=== PATIENT | female | born 1970 | race Caucasian/White ===

== ENCOUNTER 2019-11-26 15:38 | Emergency (ER) | payer OTHER, SELFPAY ==
--- NOTE | 2019-11-26 15:43 | ED.GENADULT ---
HPI - General Adult General Chief complaint: Skin/Abscess/Foreign Body Stated complaint: Rash Time Seen by Provider: 11/26/19 15:43 Source: patient Mode of arrival: ambulatory Limitations: no limitations History of Present Illness HPI narrative: 49-year-old female patient presents to the [facility] with complaints of a rash that she has had for about 3 months. Patient states that she is seeing her attending ambulatory care, primary doctor as well as another doctor for this. Patient states she has been on permethicin findings as well as amoxicillin for the rash. Patient states it continues to itch and noticed that there was a new area that popped up on her arm so she wanted to come and get checked out today. Patient denies any fevers, chest pain, shortness of breath. Patient states that no one else in the household has the rash. Patient states that it does itch more at nighttime. Patient states that she has washed everything. Patient does admit to having pets but states she has not had them checked out. Patient did state that she noticed that the rash did start when she allowed her dog to start sleeping with her at night. Related Data Allergies Allergy/AdvReac Type Severity Reaction Status Date / Time No Known Allergies Allergy Verified 11/26/19 16:12 Review of Systems Review of Systems: Narrative: CONSTITUTIONAL: Denies fever, chills, or sweats. EYES: Denies visual changes, redness, or discharge. ENT: Denies rhinorrhea, congestion, sore throat, or otalgia. CARDIOVASCULAR: Denies chest pain, palpitations, or edema. RESPIRATORY: Denies cough or dyspnea. GASTROINTESTINAL: Denies abdominal pain, nausea, vomiting, or diarrhea. GENITOURINARY: Denies dysuria or hematuria. SKIN: Positive rash with itching to the back, abdomen, neck. MUSCULOSKELETAL: Denies back pain, joint pain, or myalgia. NEUROLOGIC: Denies headache, numbness, or weakness. PSYCHIATRIC: Denies anxiety or depression. [facility] Past Medical History Medical History (Updated 11/26/19 @ 16:15 by JOHN Christian) Anxiety Hepatitis C Kidney dysfunction Cyst on kidney Surgical History Surgical History (Updated 11/26/19 @ 15:46 by JOHN Christian) H/O tubal ligation Hx of tonsillectomy Comments At the time of my signature I agree with nursing past medical history, surgical, social, and family history. There is no relevant family history pertinent to the presenting complaint. Exam Narrative: Exam Narrative: GENERAL: Well-appearing, well-nourished, and in no acute distress. HEAD: Normocephalic, atraumatic. EYES: PERRLA and EOMI. ENT: Nares clear, no rhinorrhea or epistaxis. Mucous membranes moist. NECK: Supple. No lymphadenopathy CHEST: Clear to auscultation. No respiratory distress. HEART: Regular rate and rhythm. No murmur heard. Normal peripheral pulses. ABDOMEN: Soft, nontender, nondistended, normal active bowel sounds. EXTREMITIES: Normal range of motion. No edema. SKIN: Warm, dry, patient has 2 circular rashes noted to the back of her neck that appears to be a healing blister with a punctate liat in the middle of both circular areas. There is some scabbing noted toward the outside of the circular rash. Similar rashes also appear on the patient's back and various sizes with punctate robbins in the middle of all of these areas. There is no active drainage noted. Patient does have some healing rash area noted to the abdomen that is not scabbed over at this time. There is no warmth noted to the touch. NEURO: No focal deficits. Alert and oriented x3. Course Vital Signs Vital signs: Vital Signs Temperature 36.6 C 11/26/19 15:52 Pulse Rate 77 11/26/19 15:52 Respiratory Rate 18 11/26/19 15:52 Blood Pressure 114/74 11/26/19 15:52 Pulse Oximetry 99 11/26/19 15:52 Temperature 36.6 C 11/26/19 15:52 Pulse Rate 77 11/26/19 15:52 Respiratory Rate 18 11/26/19 15:52 Blood Pressure 114/74 11/26/19 15:52 Pulse Oximetry 99 11/26/19 1
[2019-11-26 15:52] VITALS: BP 114/74; PULSE 77; RESP 18; TEMP 36.6; O2SAT 99
== END 2019-11-26 16:20 | disposition home or self-care (01) ==
PROVIDERS: Emergency Provider Nurse Practitioner Family
DX: S20.469A Insect bite (nonvenomous) of unspecified back wall of thorax, initial encounter (principal); S30.861A Insect bite (nonvenomous) of abdominal wall, initial encounter; S10.96XA Insect bite of unspecified part of neck, initial encounter; W57.XXXA Bitten or stung by nonvenomous insect and other nonvenomous arthropods, initial encounter; Z86.19 Personal history of other infectious and parasitic diseases
CPT/HCPCS: 99213; G0463

== ENCOUNTER 2020-01-28 15:54 | Emergency (ER) | payer OTHER, SELFPAY ==
[2020-01-28 16:09] VITALS: BP 122/83; PULSE 91; RESP 20; TEMP 36.9; O2SAT 100
--- NOTE | 2020-01-28 16:53 | ED.GENADULT ---
HPI - General Adult General Chief complaint: Wound/Laceration Stated complaint: pos staph infection Time Seen by Provider: 01/28/20 16:53 Source: patient and RN notes reviewed Mode of arrival: ambulatory Limitations: no limitations History of Present Illness HPI narrative: 49-year-old female presents with complaints of diffused raised, red, itching, varies stages of healing and scabbed over rash for the past 5 months. Denies new changes in personal hygiene products or laundry detergent. No new foods or medications. No swelling, burning, bleeding, or drainage. Denies fever, chills, headaches, weakness, fatigue, myalgia, facial swelling, or tongue swelling. Denies chest pain or dyspnea. Tolerating po intake well. The patient reports she have not been diagnosed with COVID-19. The patient reports she is not waiting for the results of a COVID-19 lab test. The patient reports she do not have fever, chills, weakness, fatigue, myalgia, or facial swelling. The patient reports she do not have a new or worsening cough or shortness of breath. Denies chest pain. The patient reports she do not have any rhinorrhea, congestion, sore throat, nausea, vomiting, abdominal pain, and diarrhea. Tolerating po intake well. Denies recent traveling. Denies concerns for COVID-19 or exposures been home since [id number] order except for essential household needs and return home. At this time, patient is not suspected of having COVID-19. Complaints of diffused dental pain for the past 7 days. No treatment. Denies any drainage. No fever. No jaw swelling. No neck swelling. No limitation with speaking or swallowing. Has history of dental caries. No dental trauma. No oral lesions. Exacerbating factors consist of eating and drinking cold items. Relieving factors eating soft foods and avoiding cold items. No dentures or bridges. Tolerating liquids well. Some parts of this dictation were generated by voice recognition software and may contain typographical and/or grammatical inaccuracies. Related Data Allergies Allergy/AdvReac Type Severity Reaction Status Date / Time No Known Allergies Allergy Verified 11/26/19 16:12 Review of Systems Review of Systems: Narrative: CONSTITUTIONAL: Denies fever, chills, sweats. EYES: Denies visual changes, redness, discharge. ENT: Denies rhinorrhea, congestion, sore throat, otalgia. Complains of diffused dental pain. CARDIOVASCULAR: Denies chest pain, palpitations, edema. RESPIRATORY: Denies dyspnea, wheezing, cough. GASTROINTESTINAL: Denies abdominal pain, nausea, vomiting, diarrhea. GENITOURINARY: Denies dysuria, hematuria, abnormal discharge SKIN: Complains of diffused raised, red, itching, varies stages of healing and scabbed over rash. Denies drainage. MUSCULOSKELETAL: Denies acute back pain, joint pain, or myalgia. NEUROLOGIC: Denies numbness or focal weakness. PSYCHIATRIC: Denies anxiety or depression. All other systems reviewed & are unremarkable except as noted in HPI and below. [facility] Past Medical History Medical History Anxiety Hepatitis C Kidney dysfunction Cyst on kidney Surgical History Surgical History H/O tubal ligation Hx of tonsillectomy Family History Family History (Updated 01/28/20 @ 17:06 by JOHN Mckeon) Father , Late 60's Acute myocardial infarction Mother , 80's Hypertension Diabetes mellitus Lung cancer Social History Social History (Updated 01/28/20 @ 17:08 by JOHN Mckeon) Smoking packs per day: 0.5 Smoking cigarettes per day: 10.0 Years smoked: 36 Smoking pack-years: 18.00 Smoking status: Current every day smoker Tobacco type: cigarettes Second hand tobacco smoke exposure: Yes Alcohol intake: current Substance use: former Living arrangements: with family Gender identity (if verbali
== END 2020-01-28 17:18 | disposition home or self-care (01) ==
PROVIDERS: Emergency Provider Nurse Practitioner Family
DX: L08.9 Local infection of the skin and subcutaneous tissue, unspecified (principal); K02.9 Dental caries, unspecified; Z86.19 Personal history of other infectious and parasitic diseases; F17.210 Nicotine dependence, cigarettes, uncomplicated
CPT/HCPCS: 99213; G0463

== ENCOUNTER 2020-08-24 19:50 | Emergency (ER) | payer OTHER, SELFPAY ==
[2020-08-24 20:06] VITALS: BP 149/89; PULSE 99; RESP 16; TEMP 36.9; O2SAT 99
--- NOTE | 2020-08-24 20:10 | ED.GENADULT ---
HPI - General Adult General Chief complaint: Skin/Abscess/Foreign Body Stated complaint: Sores on body Time Seen by Provider: 08/24/20 20:10 Source: patient and RN notes reviewed Mode of arrival: ambulatory Limitations: no limitations History of Present Illness HPI narrative: 50-year-old female presents with complaints of diffused wounds with redness, warmth, tenderness, and swelling to back of neck, bilateral hands, and right lower leg for the past 30 days. Salud reports that her wound throughout her body will not heal. Five days ago with nodule and then increase redness and warmth. No treatment. Denies radiation of tenderness, redness, or swelling. Exacerbating factors consist of picking at areas. Denies open areas or drainage. Denies fever or chills. Denies nausea, vomiting, and abdominal pain. Tolerating po intake well. Remains active. The patient reports she have not been diagnosed with COVID-19. The patient reports she is not waiting for the results of a COVID-19 lab test. The patient reports she do not have fever, chills, weakness, or fatigue. The patient reports she do not have a new or worsening cough or shortness of breath. Denies chest pain. The patient reports she do not have any rhinorrhea, congestion, sore throat, loss of taste, and diarrhea. Denies recent traveling. Denies concerns for COVID-19 or exposures. At this time, patient is not suspected of having COVID-19. Some parts of this dictation were generated by voice recognition software and may contain typographical and/or grammatical inaccuracies. Related Data Home Medications Medication Instructions Recorded Confirmed Vitamins 08/24/20 dextroamphetamine-amphetamine 08/24/20 Allergies Allergy/AdvReac Type Severity Reaction Status Date / Time No Known Allergies Allergy Verified 11/26/19 16:12 Review of Systems Review of Systems: Narrative: CONSTITUTIONAL: Denies fever, chills, sweats. EYES: Denies visual changes, redness, discharge. ENT: Denies rhinorrhea, congestion, sore throat, otalgia. CARDIOVASCULAR: Denies chest pain, palpitations, edema. RESPIRATORY: Denies dyspnea, wheezing, cough. GASTROINTESTINAL: Denies abdominal pain, nausea, vomiting, diarrhea. SKIN: Complains of diffused wounds with redness, warmth, tenderness, and swelling to back of neck, bilateral hands, and right lower leg. MUSCULOSKELETAL: Denies acute back pain, joint pain, or myalgia. NEUROLOGIC: Denies numbness or focal weakness. PSYCHIATRIC: Denies anxiety or depression. All systems reviewed & are unremarkable except as noted in HPI and below. [facility] Past Medical History Medical History (Updated 08/25/20 @ 00:00 by Alexia Treviño) Anxiety Hepatitis C Kidney dysfunction Cyst on kidney Surgical History Surgical History H/O tubal ligation Hx of tonsillectomy Family History Family History Father , Late 60's Acute myocardial infarction Mother , 80's Hypertension Diabetes mellitus Lung cancer Social History Social History (Updated 08/28/20 @ 19:50 by JOHN Mckeon) Smoking packs per day: 0.5 Smoking cigarettes per day: 10.0 Years smoked: 36 Smoking pack-years: 18.00 Smoking status: Current every day smoker Tobacco type: cigarettes Second hand tobacco smoke exposure: Yes Alcohol intake: current Substance use: current Substance use type: marijuana Living arrangements: with family Additional living arrangements comments: in a hotel recently lost her apartment Occupation/Education: unemployed Gender identity (if verbalized by the patient): Female Sexual Orientation (if Verbalized by the Patient): Straight or Heterosexual Comments At time of signature, agree with nurse past medical, surgical, social, and family history. There is relevant patient's past medical
== END 2020-08-24 20:28 | disposition home or self-care (01) ==
PROVIDERS: Emergency Provider Nurse Practitioner Family; PCP Family Medicine
DX: L03.115 Cellulitis of right lower limb (principal); F17.210 Nicotine dependence, cigarettes, uncomplicated; Z86.19 Personal history of other infectious and parasitic diseases
CPT/HCPCS: 99213; G0463

== ENCOUNTER 2021-06-07 17:44 | Emergency (ER) | payer OTHER, SELFPAY ==
[2021-06-07 17:56] VITALS: BP 137/103; PULSE 104; RESP 14; TEMP 36.4; O2SAT 99
--- NOTE | 2021-06-07 18:43 | ED.GENADULT ---
HPI - General Adult General Chief complaint: Skin/Abscess/Foreign Body Stated complaint: NECK RASH FOR PAST YEAR Time Seen by Provider: 06/07/21 18:18 History of Present Illness HPI narrative: Patient is a 50-year-old female who presents ER with rash of neck. Ongoing for the last year. It is located at the base of her hairline. She is concerned she may have bugs or mites in her hair. She has applied red as well as raised. She reports its tingling and itching at times. No fevers or chills or sweats. No limitation range of motion of neck. Not present anywhere else on her body. Related Data Home Medications Medication Instructions Recorded Confirmed Vitamins 08/24/20 dextroamphetamine-amphetamine 08/24/20 Allergies Allergy/AdvReac Type Severity Reaction Status Date / Time No Known Allergies Allergy Verified 06/07/21 18:39 Review of Systems Constitutional: Constitutional: Denies chills, Denies fever(s) and Denies weakness ENT: Denies nasal congestion and Denies sore throat Integumentary/Breasts: Skin/Breast: Reports pruritus, Denies erythema and Reports rash PMFSH Past Medical History Medical History (Updated 06/07/21 @ 18:46 by Jasen Knight MD) Anxiety Hepatitis C Kidney dysfunction Cyst on kidney Surgical History Surgical History H/O tubal ligation Hx of tonsillectomy Family History Family History Father , Late 60's Acute myocardial infarction Mother , 80's Hypertension Diabetes mellitus Lung cancer Social History Social History (Updated 08/28/20 @ 19:50 by JOHN Mckeon) Smoking packs per day: 0.5 Smoking cigarettes per day: 10.0 Years smoked: 36 Smoking pack-years: 18.00 Smoking status: Current every day smoker Tobacco type: cigarettes Second hand tobacco smoke exposure: Yes Alcohol intake: current Substance use: current Substance use type: marijuana Additional living arrangements comments: in a hotel recently lost her apartment Gender identity (if verbalized by the patient): Female Sexual Orientation (if Verbalized by the Patient): Straight or Heterosexual Exam Narrative: GENERAL: Well-appearing, well-nourished, and in no acute distress. HEAD: Normocephalic, atraumatic. NECK: Supple. Back to the base of the hairline with some broken off hair follicles. It is pink and indurated but not scaling. No vesicles or pustules. Nontender. NEURO: Alert and oriented x3. PSYCH: Normal mood and affect. Course Course Emergency Course: Recommend topical steroid, not felt to be fungal at this time. Recommend follow-up with PCP. Vital Signs Vital signs: Vital Signs Temperature 97.6 F 06/07/21 17:56 Pulse Rate 104 H 06/07/21 17:56 Respiratory Rate 14 06/07/21 17:56 Blood Pressure 137/103 H 06/07/21 17:56 Pulse Oximetry 99 06/07/21 17:56 Temperature 97.6 F 06/07/21 17:56 Pulse Rate 104 H 06/07/21 17:56 Respiratory Rate 14 06/07/21 17:56 Blood Pressure 137/103 H 06/07/21 17:56 Pulse Oximetry 99 06/07/21 17:56 Medical Decision Making Vital Signs Vital Signs: Vital Signs Temperature 97.6 F 06/07/21 17:56 Pulse Rate 104 H 06/07/21 17:56 Respiratory Rate 14 06/07/21 17:56 Blood Pressure 137/103 H 06/07/21 17:56 Pulse Oximetry 99 06/07/21 17:56 Temperature 97.6 F 06/07/21 17:56 Pulse Rate 104 H 06/07/21 17:56 Respiratory Rate 14 06/07/21 17:56 Blood Pressure 137/103 H 06/07/21 17:56 Pulse Oximetry 99 06/07/21 17:56 Discharge Plan Discharge Clinical Impression: Dermatitis Patient Disposition: Home, Self-Care Condition: Stable Instructions: Dermatitis (ED) Additional Instructions: Return the ER if you have fever over 100.4 ?F, you have pus draining from your wounds, you have additional concerns. Apply steroid cream
[2021-06-07 19:15] VITALS: BP 142/94; PULSE 86; RESP 16; TEMP 36.6; O2SAT 100
== END 2021-06-07 19:15 | disposition home or self-care (01) ==
PROVIDERS: Emergency Provider Emergency Medicine; PCP Family Medicine
DX: L30.9 Dermatitis, unspecified (principal); F41.9 Anxiety disorder, unspecified; Z86.19 Personal history of other infectious and parasitic diseases; F17.210 Nicotine dependence, cigarettes, uncomplicated
CPT/HCPCS: 99283